=== PATIENT | male | born 1985 | race Two or more races ===

== ENCOUNTER 2017-07-05 18:35 | Inpatient (IN) | payer MEDICAID ==
[~2017-07-05] VITALS: Ht 167.6 cm; Wt 73.5 kg
[2017-07-05] MEDS ORDERED: HYDRALAZINE HCL25 M1 ORAL (18:44)
[2017-07-05] MEDS ORDERED: DIOVAN320 MG ORAL (18:44)
[2017-07-05] MEDS ORDERED: Morphine Sulfate 4mg/ml Inj IVP ONE (18:45)
[2017-07-05] MEDS ORDERED: Morphine Sulfate 4mg/ml Inj IM ONE (18:45)
--- NOTE | 2017-07-05 18:47 | Emergency Room Report ---
History of Present Illness General Chief Complaint: Chest Pain Source: Patient Present Illness HPI Patient presents with complaints of chest pain and shortness of breath patient reports that his birthday was yesterday and he over 9 and over drank today he had his usual dialysis amount and time He went home around 7:30 in the morning And afterwards he went to work While at work he experienced midsternal chest pain and heaviness Also associated shortness of breath pain is 5/10 patient was given nitroglycerin and aspirin in route with minimal improvement Patient receives dialysis Tuesday and Saturdays Allergies: Coded Allergies: No Known Allergies (Unverified , 07/05/17) Patient History Past Medical History: see triage record Pertinent Family History: none Reviewed Nursing Documentation: PMH: Agreed, PSxH: Agreed Nursing Documentation-PMH Hx Hypertension: Yes Hx Dialysis: Yes Review of Systems All Other Systems: negative except mentioned in HPI Physical Exam Vital Signs Date Time Temp Pulse Resp B/P Pulse Ox O2 Delivery O2 Flow Rate FiO2 07/05/17 18:28 99.5 96 18 120/70 9 Room Air Sp02 EP Interpretation: reviewed, normal General Appearance: well appearing, no apparent distress Head: normocephalic, atraumatic Eyes: bilateral eye PERRL, bilateral eye EOMI ENT: hearing grossly normal, normal pharynx, TMs + canals normal, uvula midline Neck: full range of motion, supple, no meningismus, no bony tend Respiratory: lungs clear, normal breath sounds, no rhonchi, no respiratory distress, no retraction, no accessory muscle use Cardiovascular #1: normal peripheral pulses, regular rate, rhythm, no edema, no gallop, no JVD, no murmur, other - Dialysis shunt in the right upper chest Gastrointestinal: normal bowel sounds, non tender, soft, no mass, no organomegaly, non-distended, no guarding, no hernia, no pulsatile mass, no rebound Genitourinary: no CVA tenderness Musculoskeletal: normal inspection Neurologic: oriented x3, responsive, 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, motor strength/ tone normal, sensory intact Psychiatric: mood/affect normal Skin: normal color, no rash, warm/dry, palpation normal, other - AV shunt left forearm not used Lymphatic: normal inspection, no adenopathy Medical Decision Making Diagnostic Impression: Primary Impression: ACS (acute coronary syndrome) Additional Impression: Hyperkalemia ER Course Patient is a fairly complex patient with multiple differential to consideration including but not limited to cardiac cardiopulmonary and vascular emergencies Patient had minimal relief after nitroglycerin initially Received morphine and has done significantly better At this time EKG is abnormal however the first troponin is negative Patient also appears fairly comfortable And at this time we'll have serial examinations Labs Test 07/05/17 19:00 White Blood Count 8.6 K/UL (4.8-10.8) Red Blood Count 3.35 M/UL (4.70-6.10) Hemoglobin 11.2 G/DL (14.2-18.0) Hematocrit 32.9 % (42.0-52.0) Mean Corpuscular Volume 98 FL (80-99) Mean Corpuscular Hemoglobin 33.5 PG (27.0-31.0) Mean Corpuscular Hemoglobin Concent 34.1 G/DL (32.0-36.0) Red Cell Distribution Width 14.8 % (11.6-14.8) Platelet Count 306 K/UL (150-450) Mean Platelet Volume 5.7 FL (6.5-10.1) Neutrophils (%) (Auto) 71.0 % (45.0-75.0) Lymphocytes (%) (Auto) 18.0 % (20.0-45.0) Monocytes (%) (Auto) 8.3 % (1.0-10.0) Eosinophils (%) (Auto) 1.4 % (0.0-3.0) Basophils (%) (Auto) 1.3 % (0.0-2.0) Sodium Level 140 mEQ/L (135-145) Potassium Level 5.9 mEQ/L (3.4-4.9) Chloride Level 100 mEQ/L (98-107) Carbon Dioxide Level 26 mEQ/L (20-30) Anion Gap 14 (5-15) Blood Urea Nitrogen 49 mg/dL (7-23) Creatinine 8.6 mg/dL (0.7-1.2) Estimat Glomerular Filtration Rate 7.3 mL/min (>60) Glucose Level 85 mg/dL (74-106) Calcium Level 9.7 mg/dL (8.6-10.2) Total Bilirubin 0.5 mg/dL (0.0-1.2) Aspartate Amino Transf (AST/SGOT) 16 U/L (5-40) Alanine Aminotransferase (ALT/SGPT) 13 U/L (3-41) Alkaline Phosphatase 138 U/L (40-129) Total Creatine Kinase 79 U/L (38-174) Creatine Kinase MB < 1.5 ng/mL (< 6.7) Creatine Kinase MB Relative Index Troponin I < 0.30 ng/mL (<=0.30) Total Protein 8.1 g/dL (6.6-8.7) Albumin 4.9 g/dL (3.5-5.2) Globulin 3.2 g/dL Albumin/Globulin Ratio 1.5 (1.0-2.7) EKG Diagnostic Results Rate: normal Rhythm: NSR ST Segments: other - Nonspecific ST and T-wave changes concerning findings in the lateral leads this is not appear to be in line with ST elevation VA however abnormal EKG Rhythm Strip Diag. Results EP Interpretation: yes Rate: 88 Rhythm: NSR, no PVC's, no ectopy Chest X-Ray Diagnostic Results Chest X-Ray Diagnostic Results : Chest X-Ray Ordered: Yes # of Views/Limited/Complete: 1 View Indication: Chest Pain EP Interpretation: Yes Interpretation: no consolidation, no effusion, no pneumothorax Impression: No acute disease Interpreting ER Provider: DO Rito Owens Vital Signs Date Time Temp Pulse Resp B/P Pulse Ox O2 Delivery O2 Flow Rate FiO2 07/05/17 18:28 99.5 96 18 120/70 9 Room Air Status: improved Disposition: ADMITTED INPATIENT Condition: Serious YAZMIN MESSINA D.O. Jul 05, 2017 18:47
[2017-07-05 18:51] VITALS: BP 120/70
[2017-07-05] MEDS ORDERED: COREG12.5 MG ORAL (19:07)
[2017-07-05] MEDS ORDERED: SENSIPAR30 MG ORAL (19:14)
[2017-07-05] MEDS ORDERED: RENAGEL400 MG ORAL (19:14)
[2017-07-05] MEDS ORDERED: CALCIUM ACETATE1 GM (19:14)
[2017-07-05] MEDS ORDERED: CALCIUM ACETAT667 M1 (19:15)
[2017-07-05] MEDS ORDERED: VITAMIN D1000 UNI1 (19:16)
[2017-07-05 19:17] LABS: BASOPHILS % (AUTO) 1.3 % (0.0-2.0); EOSINOPHILS % (AUTO) 1.4 % (0.0-3.0); MEAN CORPUSCULAR HEMOGLOBIN 33.5 PG (27.0-31.0); MEAN CORPUSCULAR HGB CONC 34.1 G/DL (32.0-36.0); MEAN CORPUSCULAR VOLUME 98 FL (80-99); MEAN PLATELET VOLUME 5.7 FL (6.5-10.1); MONOCYTES % (AUTO) 8.3 % (1.0-10.0); PLATELET COUNT 306 K/UL (150-450); RED BLOOD COUNT 3.35 M/UL (4.70-6.10); RED CELL DISTRIBUTION WIDTH 14.8 % (11.6-14.8); WHITE BLOOD COUNT 8.6 K/UL (4.8-10.8)
[2017-07-05] MEDS ORDERED: RENVELA800 MG (19:17)
[2017-07-05 19:19] VITALS: BP 109/72
[2017-07-05 19:42] LABS: TROPONIN I < 0.30 ng/mL (<=0.30)
[2017-07-05 19:45] LABS: ALANINE AMINOTRANSFERASE 13 U/L (3-41); ALBUMIN/GLOBULIN RATIO 1.5 (1.0-2.7); ASPARTATE AMINO TRANSFERASE 16 U/L (5-40); CALCIUM 9.7 mg/dL (8.6-10.2); CARBON DIOXIDE 26 mEQ/L (20-30); CHLORIDE 100 mEQ/L (98-107); CREATININE 8.6 mg/dL (0.7-1.2); GLOMERULAR FILTRATION RATE 7.3 mL/min (>60); HEMOLYSIS 5; SODIUM 140 mEQ/L (135-145); TOTAL PROTEIN 8.1 g/dL (6.6-8.7)
[2017-07-05 19:55] LABS: CKMB < 1.5 ng/mL (< 6.7)
[2017-07-05 20:01] LABS: ANION GAP 14 (5-15)
[2017-07-05 20:06] LABS: POTASSIUM 5.9 mEQ/L (3.4-4.9)
[2017-07-05] MEDS ORDERED: Sodium Polystyrene Sulfonate 15gm Powder ORAL ONE (20:30)
[2017-07-05] MEDS ORDERED: ATORVASTATIN CA20 MG ORAL (21:07)
[2017-07-05 22:00] VITALS: BP 121/75
[2017-07-05 22:05] VITALS: BP 110/77
[2017-07-05] MEDS: Atorvastatin 20mg tab ORAL SCH (23:04)
[2017-07-06] VITALS: BP 124/75
[2017-07-06 04:00] VITALS: BP 104/59
[2017-07-06 06:59] LABS: HEMOGLOBIN A1C 5.4 % (< 6.0)
[2017-07-06 07:06] LABS: BASOPHILS % (AUTO) 1.7 % (0.0-2.0); EOSINOPHILS % (AUTO) 3.1 % (0.0-3.0); LYMPHOCYTES % (AUTO) 37.5 % (20.0-45.0); MEAN CORPUSCULAR HEMOGLOBIN 32.5 PG (27.0-31.0); MEAN CORPUSCULAR HGB CONC 32.4 G/DL (32.0-36.0); MEAN CORPUSCULAR VOLUME 100 FL (80-99); MEAN PLATELET VOLUME 6.3 FL (6.5-10.1); MONOCYTES % (AUTO) 8.9 % (1.0-10.0); NEUTROPHILS % (AUTO) 48.8 % (45.0-75.0); PLATELET COUNT 350 K/UL (150-450); RED BLOOD COUNT 4.04 M/UL (4.70-6.10); WHITE BLOOD COUNT 7.6 K/UL (4.8-10.8)
[2017-07-06 07:35] LABS: TROPONIN I < 0.30 ng/mL (<=0.30)
[2017-07-06 07:41] LABS: CRP QUANT < 0.3 mg/dL (< 0.5); MAGNESIUM 2.4 mg/dL (1.7-2.5); PHOSPHORUS 5.8 mg/dL (2.5-4.8); URIC ACID 6.9 mg/dL (3.0-7.5)
[2017-07-06 08:07] VITALS: BP 116/68
[2017-07-06] MEDS: Sensipar 30mg Tab ORAL SCH (08:44)
[2017-07-06 09:20] LABS: ALBUMIN/GLOBULIN RATIO 1.1 (1.0-2.7); CALCIUM 9.9 mg/dL (8.6-10.2); CREATININE 9.2 mg/dL (0.7-1.2); GLOMERULAR FILTRATION RATE 6.7 mL/min (>60); TOTAL PROTEIN 8.1 g/dL (6.6-8.7)
--- NOTE | 2017-07-06 09:28 | Diagnostic Imaging Report ---
Indication: Chest pain Technique: Single portable AP view of the chest. Findings: Comparison: None. Hemodialysis catheter right chest wall. The bones and extra pulmonary soft tissues, cardiomediastinal silhouette, pulmonary vasculature and parenchyma, and pleural surfaces are unremarkable. IMPRESSION: Hemodialysis catheter Otherwise negative portable AP chest .
--- NOTE | 2017-07-06 09:49 | Consultation ---
Consult Note Consult Note admitted with CP- On HD Tue Vibha Sat since Dec 2016 due to HTN Has right chest Permacath and fistula left forearm Examined data reviewed no more chest pain Assessment/Plan Chest pain ? ACS ESRD and High K Plan HD blair per cardiology RAHEEL FLORES Jul 06, 2017 09:49
[2017-07-06] MEDS ORDERED: Sodium Polystyrene Sulfonate 15gm Powder ORAL ONE (10:00)
[2017-07-06 11:38] VITALS: BP 128/65
--- NOTE | 2017-07-06 14:55 | Cardiology Report ---
APPROVED REPORT EXAM: Two-dimensional and M-mode echocardiogram with Doppler and color Doppler. M-Mode DIMENSIONS IVSd1.1 (0.7-1.1cm)Left Atrium (MM)3.9 (1.6-4.0cm) LVDd5.0 (3.5-5.6cm)Aortic Root2.8 (2.0-3.7cm) PWd1.1 (0.7-1.1cm)Aortic Cusp Exc.2.0 (1.5-2.0cm) LVDs2.7 (2.5-4.0cm) PWs2.8 cm Normal left ventricular chamber size, systolic function and wall motion. Left ventricular ejection fraction estimated to be 60-65 %. Mild left ventricular hypertrophy by 2-D. No evidence of pericardial effusion. All other cardiac chamber sizes are within normal limits. Normal appearing aortic, mitral, puImonic and tricuspid valves. Mild mitral annulus and aortic root calcification. IVC at normal size with physiologic collapse. A color flow and spectral Doppler study was performed and revealed: Trace mitral regurgitation. Mitral diastolic velocities suggest reduced left ventricular relaxation c/w borderline mild LV diastolic dysfunction (Grade I ). Trace to mild tricuspid regurgitation. Tricuspid systolic velocities suggests peak right ventricular systolic pressure of 20 mmHg.
--- NOTE | 2017-07-06 15:18 | Cardiology Report ---
APPROVED REPORT EKG Measurement Heart [id number] Normal sinus rhythm ST elevation, consider early repolarization, pericarditis, or injury Nonspecific ST abnormality Abnormal ECG
[2017-07-06 15:32] VITALS: BP 123/75
[2017-07-06 20:00] VITALS: BP 132/76
[2017-07-06] MEDS: Atorvastatin 20mg tab ORAL SCH (21:04)
[2017-07-07] VITALS: BP 114/67
--- NOTE | 2017-07-07 01:01 | History and Physical Report ---
DATE OF ADMISSION: 07/05/2017 HISTORY OF PRESENT ILLNESS: The patient is a dialysis patient, who was admitted for chest pain, rule out acute coronary syndrome. The patient also has a potassium of 6. Troponin was negative. The patient was admitted to rule out acute coronary syndrome. The patient's chest pain is going on for one day. The patient has end-stage renal disease, on hemodialysis, has history of hypertension as well. Denies palpitation. Denies radiation of the chest pain. Denies nausea, vomiting, or diarrhea. Denies fever or chills. Denies cough. Denies orthopnea. Denies shortness of breath. PAST MEDICAL HISTORY: Hyperlipidemia, hypertension, and end-stage renal disease, on hemodialysis. PAST SURGICAL HISTORY: Hemodialysis access on the chest wall, left arm shunt. MEDICATIONS: Valsartan, , hydralazine, , vitamin D, Coreg, calcium acetate, and Lipitor. ALLERGIES: No known allergies. SOCIAL HISTORY: The patient has history of smoking. No history of drug abuse. No history of alcohol abuse. FAMILY HISTORY: Noncontributory. REVIEW OF SYSTEMS: HEENT: Denies headaches. Respiratory: Denies shortness of breath. Denies cough. Cardiovascular: Reports chest pain x1 day. No orthopnea. No palpitation. Gastrointestinal: Denies nausea, vomiting, or diarrhea. Denies heartburn. Extremities: Denies any pain. Central Nervous System: Denies change in vision or speech pattern. PHYSICAL EXAMINATION: VITAL SIGNS: Temperature is 98.8 degrees, pulse is 64, and blood pressure 124/75. HEENT: PERRLA. NECK: Supple. No lymphadenopathy. CHEST: Clear to auscultation. Chest wall access, dialysis is intact. CARDIOVASCULAR: Regular rate and rhythm. GASTROINTESTINAL: Soft, nontender, and nondistended. No organomegaly. EXTREMITIES: No edema. Reflexes are equal on both sides. Moves all four extremities. LABORATORY DATA: WBC of 8.6, hemoglobin 11.2, and platelets of 306,000. Sodium 140, potassium 5.9, BUN of 49, and creatinine 8.6. Glucose of 85. ASSESSMENT AND PLAN: 1. Hyperkalemia. 2. Chest pain, rule out acute coronary syndrome. 3. The patient needs emergent dialysis. Dr. Escudero and Dr. Luna had been consulted for the above-mentioned diagnoses and treatment and cardiac workup with Dr. Luna. Katie Ruth M.D. DR: TERRI JOB#: [id number] CC:
--- NOTE | 2017-07-07 01:07 | Cardiology Progress Note ---
Assessment/Plan Assessment/Plan 1. Probably non-cardiac chest pain, AMI ruled out, sharp quality, not responded to NTG en route, s/p binge drinking, ECG no ischemic changes. 2. ESRD 3. Mils anemia Full consult not will be dictated. Objective Last 24 Hour Vital Signs Date Time Temp Pulse Resp B/P (MAP) Pulse Ox O2 Delivery O2 Flow Rate FiO2 07/07/17 00:00 99.0 82 20 114/67 98 Room Air 07/06/17 20:00 98.2 84 20 132/76 97 Room Air 07/06/17 20:00 83 07/06/17 17:08 Room Air 07/06/17 16:00 81 07/06/17 15:32 97.5 79 19 123/75 98 Room Air 07/06/17 12:00 75 07/06/17 11:38 97.6 69 20 128/65 99 Room Air 07/06/17 08:07 97.4 62 19 116/68 100 Room Air 07/06/17 08:00 78 07/06/17 04:00 65 07/06/17 04:00 98.8 65 18 104/59 99 Room Air Laboratory Tests Test 07/06/17 05:50 White Blood Count 7.6 K/UL (4.8-10.8) Red Blood Count 4.04 M/UL (4.70-6.10) L Hemoglobin 13.1 G/DL (14.2-18.0) L Hematocrit 40.5 % (42.0-52.0) L Mean Corpuscular Volume 100 FL (80-99) H Mean Corpuscular Hemoglobin 32.5 PG (27.0-31.0) H Mean Corpuscular Hemoglobin Concent 32.4 G/DL (32.0-36.0) Red Cell Distribution Width 15.0 % (11.6-14.8) H Platelet Count 350 K/UL (150-450) Mean Platelet Volume 6.3 FL (6.5-10.1) L Neutrophils (%) (Auto) 48.8 % (45.0-75.0) Lymphocytes (%) (Auto) 37.5 % (20.0-45.0) Monocytes (%) (Auto) 8.9 % (1.0-10.0) Eosinophils (%) (Auto) 3.1 % (0.0-3.0) H Basophils (%) (Auto) 1.7 % (0.0-2.0) Sodium Level 140 mEQ/L (135-145) Potassium Level 6.0 mEQ/L (3.4-4.9) *H Chloride Level 98 mEQ/L (98-107) Carbon Dioxide Level 18 mEQ/L (20-30) L Anion Gap 24 (5-15) H Blood Urea Nitrogen 59 mg/dL (7-23) H Creatinine 9.2 mg/dL (0.7-1.2) H Estimat Glomerular Filtration Rate 6.7 mL/min (>60) Glucose Level 82 mg/dL (74-106) Hemoglobin A1c 5.4 % (< 6.0) Uric Acid 6.9 mg/dL (3.0-7.5) Calcium Level 9.9 mg/dL (8.6-10.2) Phosphorus Level 5.8 mg/dL (2.5-4.8) H Magnesium Level 2.4 mg/dL (1.7-2.5) Total Bilirubin 0.5 mg/dL (0.0-1.2) Gamma Glutamyl Transpeptidase 119 U/L (8-61) H Aspartate Amino Transf (AST/SGOT) 28 U/L (5-40) Alanine Aminotransferase (ALT/SGPT) 22 U/L (3-41) Alkaline Phosphatase 143 U/L (40-129) H Troponin I < 0.30 ng/mL (<=0.30) C-Reactive Protein, Quantitative < 0.3 mg/dL (< 0.5) Pro-B-Type Natriuretic Peptide 2279 pg/mL (0-125) H Total Protein 8.1 g/dL (6.6-8.7) Albumin 4.3 g/dL (3.5-5.2) Globulin 3.8 g/dL Albumin/Globulin Ratio 1.1 (1.0-2.7) Thyroid Stimulating Hormone (TSH) 1.730 uIU/mL (0.300-4.500) YAIR HOYT Jul 07, 2017 01:07
[2017-07-07] MEDS: Nitroglycerin Subl 0.4mg tab (Bottle Of 25) SL PRN ×4 (01:49→08:29)
[2017-07-07 04:00] VITALS: BP 115/70
[2017-07-07 07:14] LABS: BASOPHILS % (AUTO) 1.6 % (0.0-2.0); EOSINOPHILS % (AUTO) 3.1 % (0.0-3.0); LYMPHOCYTES % (AUTO) 37.8 % (20.0-45.0); MEAN CORPUSCULAR HEMOGLOBIN 32.2 PG (27.0-31.0); MEAN CORPUSCULAR HGB CONC 32.5 G/DL (32.0-36.0); MEAN CORPUSCULAR VOLUME 99 FL (80-99); MEAN PLATELET VOLUME 6.4 FL (6.5-10.1); NEUTROPHILS % (AUTO) 49.6 % (45.0-75.0); PLATELET COUNT 363 K/UL (150-450); RED BLOOD COUNT 3.98 M/UL (4.70-6.10); RED CELL DISTRIBUTION WIDTH 13.9 % (11.6-14.8); WHITE BLOOD COUNT 7.9 K/UL (4.8-10.8)
[2017-07-07 07:20] LABS: ALBUMIN/GLOBULIN RATIO 1.2 (1.0-2.7); CALCIUM 9.8 mg/dL (8.6-10.2); CHOLESTEROL/HDL RATIO 3.2 (3.3-4.4); CREATININE 8.9 mg/dL (0.7-1.2); CRP QUANT 0.4 mg/dL (< 0.5); PHOSPHORUS 7.9 mg/dL (2.5-4.8); POTASSIUM 3.8 mEQ/L (3.4-4.9); TOTAL PROTEIN 7.8 g/dL (6.6-8.7)
[2017-07-07 08:17] VITALS: BP 126/75
[2017-07-07] MEDS: Sensipar 30mg Tab ORAL SCH (08:30)
--- NOTE | 2017-07-07 12:07 | General Progress Note ---
Assessment/Plan Status: stable Assessment/Plan Chest pain ? ACS ESRD and High K on presentation Plan HD done 07/06 next 07/09 per cardiology OK to Dc from renal stand point Subjective ROS Limited/Unobtainable: No Allergies: Coded Allergies: No Known Allergies (Unverified , 07/05/17) Objective Last 24 Hour Vital Signs Date Time Temp Pulse Resp B/P (MAP) Pulse Ox O2 Delivery O2 Flow Rate FiO2 07/07/17 08:29 116/72 07/07/17 08:21 120/71 07/07/17 08:17 97.7 78 18 126/75 99 Nasal Cannula 2.0 07/07/17 08:12 126/75 07/07/17 04:00 98.1 81 20 115/70 100 Room Air 07/07/17 04:00 79 07/07/17 01:49 114/67 07/07/17 00:00 80 07/07/17 00:00 99.0 82 20 114/67 98 Room Air 07/06/17 20:00 98.2 84 20 132/76 97 Room Air 07/06/17 20:00 83 07/06/17 17:08 Room Air 07/06/17 16:00 81 07/06/17 15:32 97.5 79 19 123/75 98 Room Air Laboratory Tests 07/07/17 04:40: White Blood Count 7.9, Red Blood Count 3.98L, Hemoglobin 12.8L, Hematocrit 39.5L , Mean Corpuscular Volume 99, Mean Corpuscular Hemoglobin 32.2H, Mean Corpuscular Hemoglobin Concent 32.5, Red Cell Distribution Width 13.9, Platelet Count 363, Mean Platelet Volume 6.4L, Neutrophils (%) (Auto) 49.6, Lymphocytes ( %) (Auto) 37.8, Monocytes (%) (Auto) 8.0, Eosinophils (%) (Auto) 3.1H, Basophils (%) (Auto) 1.6, Sodium Level 139, Potassium Level 3.8, Chloride Level 91L, Carbon Dioxide Level 32H, Anion Gap 16H, Blood Urea Nitrogen 47H, Creatinine 8.9H, Estimat Glomerular Filtration Rate 7.0, Glucose Level 91, Calcium Level 9.8, Phosphorus Level 7.9H, Magnesium Level 2.0, Total Bilirubin 0.6, Aspartate Amino Transf (AST/SGOT) 16, Alanine Aminotransferase (ALT/SGPT) 20, Alkaline Phosphatase 128, C-Reactive Protein, Quantitative 0.4, Pro-B-Type Natriuretic Peptide 1457H, Total Protein 7.8, Albumin 4.4, Globulin 3.4, Albumin /Globulin Ratio 1.2, Triglycerides Level 164H, Cholesterol Level 145, LDL Cholesterol 67, HDL Cholesterol 45, Cholesterol/HDL Ratio 3.2L Height (Feet): 5 Height (Inches): 6.00 Weight (Pounds): 162 General Appearance: no apparent distress Objective PE not changed RAHEEL FLORES Jul 07, 2017 12:07
[2017-07-07 12:26] VITALS: BP 105/65
[2017-07-07 16:00] VITALS: BP 122/73
[2017-07-07 20:01] VITALS: BP 103/65
--- NOTE | 2017-07-07 20:21 | General Progress Note ---
Assessment/Plan Problem List: (1) Hyperkalemia ICD Codes: E87.5 - Hyperkalemia SNOMED: 17973109 (2) ACS (acute coronary syndrome) ICD Codes: I24.9 - Acute ischemic heart disease, unspecified SNOMED: 939500878 Status: progressing Assessment/Plan hyperkalemia improved esrd on hd atypical cp esophageal spsm? dc in am Subjective ROS Limited/Unobtainable: Yes Allergies: Coded Allergies: No Known Allergies (Unverified , 07/05/17) Objective Last 24 Hour Vital Signs Date Time Temp Pulse Resp B/P (MAP) Pulse Ox O2 Delivery O2 Flow Rate FiO2 07/07/17 20:01 98.1 84 20 103/65 100 Room Air 07/07/17 16:00 98.2 86 18 122/73 98 Room Air 07/07/17 16:00 91 07/07/17 12:26 98.1 90 19 105/65 99 Room Air 07/07/17 12:00 82 07/07/17 08:29 116/72 07/07/17 08:21 120/71 07/07/17 08:17 97.7 78 18 126/75 99 Nasal Cannula 2.0 07/07/17 08:12 126/75 07/07/17 08:00 69 07/07/17 04:00 98.1 81 20 115/70 100 Room Air 07/07/17 04:00 79 07/07/17 01:49 114/67 07/07/17 00:00 80 07/07/17 00:00 99.0 82 20 114/67 98 Room Air Laboratory Tests 07/07/17 04:40: White Blood Count 7.9, Red Blood Count 3.98L, Hemoglobin 12.8L, Hematocrit 39.5L , Mean Corpuscular Volume 99, Mean Corpuscular Hemoglobin 32.2H, Mean Corpuscular Hemoglobin Concent 32.5, Red Cell Distribution Width 13.9, Platelet Count 363, Mean Platelet Volume 6.4L, Neutrophils (%) (Auto) 49.6, Lymphocytes ( %) (Auto) 37.8, Monocytes (%) (Auto) 8.0, Eosinophils (%) (Auto) 3.1H, Basophils (%) (Auto) 1.6, Sodium Level 139, Potassium Level 3.8, Chloride Level 91L, Carbon Dioxide Level 32H, Anion Gap 16H, Blood Urea Nitrogen 47H, Creatinine 8.9H, Estimat Glomerular Filtration Rate 7.0, Glucose Level 91, Calcium Level 9.8, Phosphorus Level 7.9H, Magnesium Level 2.0, Total Bilirubin 0.6, Aspartate Amino Transf (AST/SGOT) 16, Alanine Aminotransferase (ALT/SGPT) 20, Alkaline Phosphatase 128, C-Reactive Protein, Quantitative 0.4, Pro-B-Type Natriuretic Peptide 1457H, Total Protein 7.8, Albumin 4.4, Globulin 3.4, Albumin /Globulin Ratio 1.2, Triglycerides Level 164H, Cholesterol Level 145, LDL Cholesterol 67, HDL Cholesterol 45, Cholesterol/HDL Ratio 3.2L Height (Feet): 5 Height (Inches): 6.00 Weight (Pounds): 162 Cardiovascular: regular rhythm, no gallop/murmur Abdomen: soft Katie Ruth MD Jul 07, 2017 20:21
[2017-07-07] MEDS: Atorvastatin 20mg tab ORAL SCH (21:11)
--- NOTE | 2017-07-07 23:27 | Cardiology Progress Note ---
Assessment/Plan Assessment/Plan 1. Non-cardiac chest pain, AMI ruled out, ECG no ischemic changes, non-ischemic treadmill stress test. CP likely GI in origin. 2. ESRD 3. Mild anemia Subjective Subjective Sinus rhythm at 84. Postprandial chest pain lasting ~1 hr, responding to NTG. Objective Last 24 Hour Vital Signs Date Time Temp Pulse Resp B/P (MAP) Pulse Ox O2 Delivery O2 Flow Rate FiO2 07/07/17 20:01 98.1 84 20 103/65 100 Room Air 07/07/17 16:00 98.2 86 18 122/73 98 Room Air 07/07/17 16:00 91 07/07/17 12:26 98.1 90 19 105/65 99 Room Air 07/07/17 12:00 82 07/07/17 08:29 116/72 07/07/17 08:21 120/71 07/07/17 08:17 97.7 78 18 126/75 99 Nasal Cannula 2.0 07/07/17 08:12 126/75 07/07/17 08:00 69 07/07/17 04:00 98.1 81 20 115/70 100 Room Air 07/07/17 04:00 79 07/07/17 01:49 114/67 07/07/17 00:00 80 07/07/17 00:00 99.0 82 20 114/67 98 Room Air 2D Echo: EF 65%, Mild LVH, Grade I LVDD, RVSP 20 mmHg Laboratory Tests Test 07/07/17 04:40 White Blood Count 7.9 K/UL (4.8-10.8) Red Blood Count 3.98 M/UL (4.70-6.10) L Hemoglobin 12.8 G/DL (14.2-18.0) L Hematocrit 39.5 % (42.0-52.0) L Mean Corpuscular Volume 99 FL (80-99) Mean Corpuscular Hemoglobin 32.2 PG (27.0-31.0) H Mean Corpuscular Hemoglobin Concent 32.5 G/DL (32.0-36.0) Red Cell Distribution Width 13.9 % (11.6-14.8) Platelet Count 363 K/UL (150-450) Mean Platelet Volume 6.4 FL (6.5-10.1) L Neutrophils (%) (Auto) 49.6 % (45.0-75.0) Lymphocytes (%) (Auto) 37.8 % (20.0-45.0) Monocytes (%) (Auto) 8.0 % (1.0-10.0) Eosinophils (%) (Auto) 3.1 % (0.0-3.0) H Basophils (%) (Auto) 1.6 % (0.0-2.0) Sodium Level 139 mEQ/L (135-145) Potassium Level 3.8 mEQ/L (3.4-4.9) Chloride Level 91 mEQ/L (98-107) L Carbon Dioxide Level 32 mEQ/L (20-30) H Anion Gap 16 (5-15) H Blood Urea Nitrogen 47 mg/dL (7-23) H Creatinine 8.9 mg/dL (0.7-1.2) H Estimat Glomerular Filtration Rate 7.0 mL/min (>60) Glucose Level 91 mg/dL (74-106) Calcium Level 9.8 mg/dL (8.6-10.2) Phosphorus Level 7.9 mg/dL (2.5-4.8) H Magnesium Level 2.0 mg/dL (1.7-2.5) Total Bilirubin 0.6 mg/dL (0.0-1.2) Aspartate Amino Transf (AST/SGOT) 16 U/L (5-40) Alanine Aminotransferase (ALT/SGPT) 20 U/L (3-41) Alkaline Phosphatase 128 U/L (40-129) C-Reactive Protein, Quantitative 0.4 mg/dL (< 0.5) Pro-B-Type Natriuretic Peptide 1457 pg/mL (0-125) H Total Protein 7.8 g/dL (6.6-8.7) Albumin 4.4 g/dL (3.5-5.2) Globulin 3.4 g/dL Albumin/Globulin Ratio 1.2 (1.0-2.7) Triglycerides Level 164 mg/dL (< 150) H Cholesterol Level 145 mg/dL (< 200) LDL Cholesterol 67 mg/dL (60-99) HDL Cholesterol 45 mg/dL (> 60) Cholesterol/HDL Ratio 3.2 (3.3-4.4) L Objective Head: normocephalic, atraumatic, EOMI, bilateral eye PERRL Neck: full range of motion, supple, no JVD Respiratory: lungs clear, normal breath sounds, no rhonchi, no respiratory distress, no retraction, no accessory muscle use Cardiovascular: normal peripheral pulses, regular rate, rhythm, no gallop, rub or murmur, other - Dialysis shunt in the right upper chest Gastrointestinal: normal bowel sounds, non tender, soft, no mass, no organomegaly, non-distended, no guarding, no hernia, no pulsatile mass, no rebound Musculoskeletal: normal inspection, no edema, clubbing or cyanosis. YAIR HOYT Jul 07, 2017 23:27
[2017-07-08] VITALS: BP 135/73
[2017-07-08 04:00] VITALS: BP 107/58
[2017-07-08 07:50] VITALS: BP 121/79
[2017-07-08] MEDS: Sensipar 30mg Tab ORAL SCH (10:40)
--- NOTE | 2017-07-08 10:49 | General Progress Note ---
Assessment/Plan Status: stable Assessment/Plan Chest pain ? ACS ESRD and High K on presentation Plan HD done 07/06 next 07/09 per cardiology OK to Dc from renal stand point Subjective ROS Limited/Unobtainable: No Allergies: Coded Allergies: No Known Allergies (Unverified , 07/05/17) Objective Last 24 Hour Vital Signs Date Time Temp Pulse Resp B/P (MAP) Pulse Ox O2 Delivery O2 Flow Rate FiO2 07/08/17 08:00 80 07/08/17 07:50 97.2 69 18 121/79 100 Nasal Cannula 2.0 07/08/17 04:00 71 07/08/17 04:00 97.2 75 20 107/58 98 Room Air 07/08/17 00:00 79 07/08/17 00:00 97.7 82 20 135/73 97 Room Air 07/07/17 20:01 98.1 84 20 103/65 100 Room Air 07/07/17 20:00 89 07/07/17 16:00 98.2 86 18 122/73 98 Room Air 07/07/17 16:00 91 07/07/17 12:26 98.1 90 19 105/65 99 Room Air 07/07/17 12:00 82 Intake and Output 07/08/17 07/09/17 19:00 07:00 Intake Total 200 ml Balance 200 ml Intake Oral 200 ml Height (Feet): 5 Height (Inches): 6.00 Weight (Pounds): 162 General Appearance: no apparent distress Objective PE not changed RAHEEL FLORES Jul 08, 2017 10:49
[2017-07-08 11:22] VITALS: BP 118/73
--- NOTE | 2017-07-08 17:00 | Consultation ---
DATE OF CONSULTATION: 07/06/2017 CARDIOLOGY CONSULTATION: CONSULTING PHYSICIAN: Ricardo Luna M.D. REFERRING PHYSICIAN: Katie Ruth M.D. REASON FOR CONSULTATION: Management of chest pain and shortness of breath. HISTORY OF PRESENT ILLNESS: The patient is a very pleasant 32-year-old gentleman, who presents to the hospital with chest pain and shortness of breath. Apparently today, chest pain happened after he was binge drinking for his birthday. He has a history of end-stage renal disease, on hemodialysis. He states that the chest pain is midsternal and pressure like. It occurs after food and it may last for about an hour. There was some associated shortness of breath at the time of arrival to the hospital. He states that he required three nitroglycerin tablets for the pain to subside. He denies any prior history of coronary artery disease, congestive heart failure, or cardiac arrhythmias. His hemodialysis days are Tuesdays, , and Saturdays. PAST MEDICAL HISTORY: End-stage renal disease, hypertension, and hyperlipidemia. PAST SURGICAL HISTORY: Hemodialysis access on the left arm. MEDICATIONS: List of medications includes atorvastatin 20 mg p.o. nightly, calcium acetate 667 mg p.o. daily, carvedilol 12.5 mg twice daily, vitamin D 1000 units daily, Sensipar 30 mg p.o. daily, hydralazine 25 mg q.6 h., Renvela 2400 mg three times daily, and valsartan 320 mg p.o. daily. ALLERGIES: No known drug allergies. HABITS: The patient drinks alcohol, but denies any tobacco or illicit drug use. REVIEW OF SYSTEMS: HEENT: Denies any headache, diplopia, or blurred vision. Constitutional: Denies any fever, chills, night sweats, or weight loss. Cardiovascular: He complains of chest pain and shortness of breath as mentioned above. Denies any PND, orthopnea, or leg swelling. Pulmonary: Denies any cough, hemoptysis, or wheezing. Gastrointestinal: Denies any nausea, vomiting, diarrhea, constipation, abdominal pain, or GI bleed. Genitourinary: Denies any hematuria or dysuria, on hemodialysis, three days a week. Neurology: Denies any motor dysfunction, sensory deficit, or altered speech. PHYSICAL EXAMINATION: VITAL SIGNS: Blood pressure was 120/70, pulse of 96, respirations of 18, temperature 99.5 degrees Fahrenheit, and O2 saturation was 97%. GENERAL: The patient is a very pleasant, 32-year-old gentleman, in no apparent respiratory distress. HEENT: Atraumatic and normocephalic. Pupils are equal, round, and reactive to light and accommodation. Extraocular muscles are intact. NECK: JVP is less than 5 cm. No carotid bruit. Carotid upstroke is 2+ bilaterally. CVS: Normal S1 and S2. Regular rate and rhythm. No murmurs, gallops, or rubs. PMI is at fourth intercostal space at the midclavicular. LUNGS: Clear to auscultation bilaterally. ABDOMEN: Soft, nontender, and nondistended. No hepatosplenomegaly. Positive bowel sounds. EXTREMITIES: No evidence of edema, clubbing, or cyanosis. There is left arm shunt with thrill. LABORATORY FINDINGS: WBC is 8.6, hemoglobin 11.3, hematocrit 32.9, and platelet count 306,000. Sodium is 140, potassium 5.9, chloride 100, bicarbonate 26, BUN 49, creatinine 8.6, glucose 85, and calcium 9.7. Troponin I is less than 0.3 x2. ProBNP is 2279. TSH is 1.73. DIAGNOSTIC DATA: Chest x-ray shows hemodialysis catheter in SVC. No acute cardiopulmonary disease. A 2D echocardiography shows normal left ventricular systolic function with LVEF of about 60 to 65%. Mild LVH. Trace mitral regurgitation. Grade 1 LV diastolic dysfunction and right ventricular systolic pressure measured at 20 mmHg. A 12-lead electrocardiogram shows sinus rhythm, rate of 88 with normal axis, normal QT interval, and early depolarization. There is no ST and T wave abnormality. ASSESSMENT AND PLAN: The patient is a very unfortunate 32-year-old gentleman, seen in Cardiology consultation at the request of Dr. Ruth. 1. Chest pain, appears to be atypical, risk factor for coronary artery disease includes hypertension. I would like to place the patient on a treadmill stress test to rule out obstructive coronary artery disease. I suspect that the patient has gastrointestinal issues that also respond to nitroglycerin tablet such as esophageal spasm as there is a correlation of the pain with food intake. A 2D echocardiography and a 12-lead electrocardiogram have been unremarkable from the cardiac standpoint. Further therapeutic and dietary decision will be based on the results of the treadmill stress test. 2. History of hypertension. I will continue with the outpatient angiotensin-receptor blockers. We will continue with blood pressure in this hospitalization. 3. I will also obtain a lipid panel in the morning. I would like to thank Dr. Ruth for allowing me to participate in the care of this patient. Ricardo Luna M.D. DR: Shaylee JOB#: [id number] CC:
--- NOTE | 2017-07-11 08:55 | Discharge Summary ---
Discharge Summary Hospital Course Date of Admission Jul 05, 2017 at 19:55 Date of Discharge Jul 08, 2017 at 14:09 Admitting Diagnosis ACS HPI Romie Rosenberg is a 32 year old male who was admitted on Jul 05, 2017 at 19:55 for Acute Coronary Syndrome Hospital Course dc summary #[id number] Discharge Medications Continued Medications: Atorvastatin Calcium* (Atorvastatin Calcium*) 20 Mg Tablet 20 MG ORAL BEDTIME, TAB Calcium Acetate (Calcium Acetate) 667 Mg Capsule CAP Carvedilol (Coreg) 12.5 Mg Tablet 12.5 MG ORAL EVERY 12 HOURS, TAB Cholecalciferol (Vitamin D3)* (Vitamin D*) 1,000 Unit Tablet Cinacalcet* (Sensipar*) 30 Mg Tablet 30 MG ORAL DAILY, TAB Hydralazine Hcl* (Hydralazine Hcl*) 25 Mg Tablet 25 MG ORAL EVERY 6 HOURS, TAB 0 Refills Sevelamer Carbonate (Renvela) 800 Mg Tablet TAB Valsartan (Diovan) 320 Mg Tablet 320 MG ORAL DAILY, TAB Discharge Condition Upon Discharge: stable Discharge Disposition Patient was discharged to Home (01) Discharge Diagnoses: Discharge Instructions Discharge Instructions Special Instructions I have been assigned to complete a D/C Summary on this account. I was not involved in the patient management Tati Jade NP ([facility]) Jul 11, 2017 08:55
--- NOTE | 2017-07-12 07:15 | Discharge Summary 2 SIG ---
DATE OF ADMISSION: 07/05/2017 DATE OF DISCHARGE: 07/08/2017 REASON FOR ADMISSION: This is a 32-year-old male with a history of hypertension, end-stage renal disease, on hemodialysis, presented with complaint of chest pain and shortness of breath. The patient reported his birthday being day before presentation to emergency department, he overate and over-drank at the libertarian. The day of the presentation to the ER, prior to that, he had hemodialysis and then he went to work. At work, he experienced midsternal chest pain and heaviness with associated shortness of breath, 5/10, lasting about one hour. The patient was given nitroglycerin and aspirin en route by the paramedics with minimal improvement. In the emergency department, vital signs were stable. Troponin was negative. Potassium was 5.9. CK was 79. EKG as read by ED doctor was abnormal with nonspecific ST and T-wave changes, concerning findings in the lateral leads. The patient was admitted for further management. ADMITTING DIAGNOSES: Include chest pain, possible acute coronary syndrome, hyperkalemia, end-stage renal disease, and hypertension. HOSPITAL COURSE: The patient was admitted to telemetry floor. Cardiology and Nephrology consults were requested. Serial troponins were negative. EKG as read by coal chemist showed sinus rhythm, rate 88 with normal axis, normal QT interval and early depolarization. No ST or T-wave abnormality. Echocardiogram revealed preserved ejection fraction of 60% to 65%, mild left ventricular hypertrophy, trace mitral regurgitation, grade 1 left ventricular diastolic dysfunction, and right ventricular systolic pressure measured at 20 mmHg. The patient was ruled out for acute [place]. Due to the risk factor of hypertension, the patient was initially scheduled for stress test to rule out obstructive coronary disease. According to coal chemist, chest pain is atypical. He stated that likely the patient had gastrointestinal issues such as esophageal spasm since there is a correlation of the pain and food intake. Chest pain was postprandial, lasting one hour, and 2-D echo and EKG along with serial troponin were all unremarkable. Blood pressure was managed with current medication regimen and was stable. Dialysis was done as per hospitality housekeeper. First dialysis done as soon as possible. Potassium 3.8 on discharge. Decision was made to do stress test. Recommended stress test as an outpatient. The patient was pain free and stable for discharge. No shortness of breath. Pulse oximetry, stable on room air. Blood pressure controlled. Chest x-ray, no acute cardiopulmonary issues. The patient was discharged home. Follow up with the primary medical doctor and hospitality housekeeper. FINAL DIAGNOSES: 1. Atypical chest pain, likely gastrointestinal in origin. 2. Hyperkalemia. 3. End-stage renal disease. 4. Hypertension. 5. Likely esophageal spasm. Of note, lipid panel was checked and noted elevated triglyceride. The patient on a statin. The patient educated on low-fat and low-cholesterol diet. Recommended to recheck lipid panel in three months. DISCHARGE MEDICATIONS: See medication reconciliation list. DISCHARGE INSTRUCTIONS: The patient discharged home. Katie Ruth M.D. I have been assigned to dictate discharge summary on this account and I was not involved in the patient's management. Tati Jade ([facility]) N.P. DR: Rula JOB#: [id number] CC:
== END 2017-07-08 14:09 | disposition home or self-care (01) | DRG 243 ==
LOC: EDBD 18:35 → EMR 19:05 → 2E 19:55 → EDBEDREQ 21:18
PROC: 5A1D00Z (ICD-10-PCS; principal; 2017-07-06)
DX: K22.4 Dyskinesia of esophagus (principal); I12.0 Hypertensive chronic kidney disease with stage 5 chronic kidney disease or end stage renal disease; N18.6 End stage renal disease; R07.89 Other chest pain; D64.9 Anemia, unspecified; Z99.2 Dependence on renal dialysis; E87.5 Hyperkalemia; E78.5 Hyperlipidemia, unspecified
CPT/HCPCS: 36415; 71010; 80053; 80061; 82550; 82553; 82977; 83036; 83735; 83880; 84100; 84443; 84484; 84550; 85025; 86140; 93005; 93017; 93306; J2405